=== PATIENT | female | born 1945 | race Caucasian/White ===

== ENCOUNTER → 2016-07-02 | Outpatient (CLI) | payer OTHER ==
--- NOTE | 2016-07-02 10:55 | MM ---
Reason for exam: follow-up at short interval from prior study. Last mammogram was performed 6 months ago. History: Patient is postmenopausal, has history of other cancer at age 57, and is nulliparous. Physical Findings: Nurse did not find any significant physical abnormalities on exam. MG Diagnostic Mammo RT w CAD CC and MLO view(s) were taken of the right breast. Prior study comparison: December 18, 2015, right breast MG work up mamm w CAD RT. December 04, 2015, bilateral MG screening mammo w CAD. There are scattered fibroglandular densities. Finding: There are few typically benign round calcifications in the right breast. There is no discrete abnormality. These results were verbally communicated with the patient and result sheet given to the patient on 07/02/16. ASSESSMENT: Benign, BI-RAD 2 RECOMMENDATION: Return to routine screening mammogram schedule for both breasts. Back on schedule.
== END ==
LOC: RADMAMWWP 09:53
PROVIDERS: ATTEND Family Medicine
DX: N64.9 Disorder of breast, unspecified (principal)

== ENCOUNTER → 2017-05-09 | Outpatient (CLI) | payer OTHER ==
--- NOTE | 2017-05-13 09:51 | MM ---
Reason for exam: screening (asymptomatic). Last mammogram was performed 10 months ago. History: Patient is postmenopausal, has history of other cancer at age 57, and is nulliparous. Physical Findings: A clinical breast exam by your physician is recommended on an annual basis and results should be correlated with mammographic findings. MG Screening Mammo w CAD Bilateral CC and MLO view(s) were taken. Prior study comparison: December 04, 2015, bilateral MG screening mammo w CAD. December 02, 2013, mammogram, performed at [facility]. October 09, 2012, mammogram, performed at [facility]. There are scattered fibroglandular densities. No significant changes when compared with prior studies. ASSESSMENT: Negative, BI-RAD 1 RECOMMENDATION: Routine screening mammogram of both breasts in 1 year.
== END | disposition home or self-care (01) ==
LOC: RADMAMWWP 09:33
DX: Z12.31 Encounter for screening mammogram for malignant neoplasm of breast (principal)
CPT/HCPCS: 77067

== ENCOUNTER → 2018-07-13 | Outpatient (CLI) | payer OTHER ==
--- NOTE | 2018-07-14 10:17 | MM ---
Reason for exam: screening (asymptomatic). Last mammogram was performed 1 year and 2 months ago. History: Patient is postmenopausal, has history of other cancer at age 57, and is nulliparous. Physical Findings: A clinical breast exam by your physician is recommended on an annual basis and results should be correlated with mammographic findings. MG Screening Mammo w CAD Bilateral CC and MLO view(s) were taken. Prior study comparison: May 09, 2017, bilateral MG screening mammo w CAD. July 02, 2016, right breast MG diagnostic mammo RT w CAD. The breast tissue is heterogeneously dense. This may lower the sensitivity of mammography. Stable benign calcifications. There is no discrete abnormality. No significant changes when compared with prior studies. ASSESSMENT: Benign, BI-RAD 2 RECOMMENDATION: Routine screening mammogram of both breasts in 1 year.
== END ==
LOC: RADMAMWWP 12:03
PROVIDERS: ATTEND Physician Assistant
DX: Z12.31 Encounter for screening mammogram for malignant neoplasm of breast (principal)
CPT/HCPCS: 77067

== ENCOUNTER → 2019-01-01 | Outpatient (CLI) | payer OTHER ==
--- NOTE | 2019-01-01 11:56 | CT ---
EXAMINATION TYPE: CT sinus wo con DATE OF EXAM: 01/01/2019 COMPARISON: NONE HISTORY: Headaches and sinus drainage per patient. Chronic sinusitis per order. CT DLP: 587.5 mGycm. Automated Exposure Control for Dose Reduction was Utilized. TECHNIQUE: CT scan of the sinuses is performed without contrast, axial images are obtained, coronal r eformatted images are also reviewed. FINDINGS: The paranasal sinuses including the frontal, ethmoid, sphenoid, and maxillary sinuses bila terally are well-aerated without abnormal opacification or suspicious air-fluid levels. The ostiomea fabienne complex is patent bilaterally on coronal image 19. Nasal septum is slightly deviated to left of m idline. Visualized portion of mastoid air cells show no abnormal opacification. The globes are intact bilate rally. Some vascular calcification of distal internal carotid arteries bilaterally is present. Visua lized brain parenchyma shows mild to moderate diffuse cerebral atrophy IMPRESSION: The sinuses are clear and the ostiomeatal complex is patent bilaterally.
== END | disposition home or self-care (01) ==
LOC: RADCTMAIN 11:18
DX: J32.9 Chronic sinusitis, unspecified (principal); Z88.8 Allergy status to other drugs, medicaments and biological substances
CPT/HCPCS: 70486

== ENCOUNTER → 2021-09-20 | Outpatient (CLI) | payer OTHER ==
[2021-09-20 19:00] LABS: Basophils # (A) 0.02 X 10*3/uL (0.00-0.10); Basophils % (A) 0.5 %; Eosinophils # (A) 0.14 X 10*3/uL (0.04-0.35); Eosinophils % (A) 3.5 %; HCT 39.1 % (37.2-46.3); HGB 12.1 g/dL (12.0-15.0); Immature Grans, Automated 0.2 %; Lymphocytes # (A) 1.02 X 10*3/uL (0.90-5.00); Lymphocytes % (A) 25.2 %; MCHC 30.9 g/dL (32.0-37.0); MCV 84.1 fL (80.0-97.0); Mean Platelet Volume 11.1 fL (9.5-12.2); Monocytes # (A) 0.29 X 10*3/uL (0.20-1.00); Monocytes % (A) 7.2 %; NRBC Per 100 WBC 0 /100 WBCS (0.0-0.0); Neutrophils # (A) 2.57 X 10*3/uL (1.80-7.70); Neutrophils % (A) 63.4 %; Platelet Count 201 X 10*3/uL (140-440); RBC 4.65 X 10*6/uL (4.10-5.20); RDW 14.5 % (11.5-14.5); WBC 4.05 X 10*3/uL (4.50-10.00)
[2021-09-20 19:07] LABS: African American GFR (CKD) 102.6 (60.0-200.0); Anion Gap 10.6 mmol/L (10.00-18.00); Blood Urea Nitrogen 12.6 mg/dL (9.0-27.0); Calcium 9.7 mg/dL (8.7-10.3); Carbon Dioxide 27.4 mmol/L (20.0-27.5); Non-African American GFR(CKD) 88.5 (60.0-200.0); Potassium 4.8 mmol/L (3.5-5.5)
[2021-09-20 20:28] LABS: INR 0.95 (0.90-1.11); Prothrombin Time 10.5 sec (9.9-11.9)
== END | disposition home or self-care (01) ==
LOC: LABPAT 13:07
PROVIDERS: ATTEND Orthopaedic Surgery
DX: Z01.812 Encounter for preprocedural laboratory examination (principal); Z22.322 Carrier or suspected carrier of Methicillin resistant Staphylococcus aureus; M17.11 Unilateral primary osteoarthritis, right knee
CPT/HCPCS: 80048; 85025; 85610; 87070

== ENCOUNTER 2021-10-16 07:48 | Observation (INO) | payer OTHER ==
--- NOTE | 2021-10-15 13:34 | HP ---
HISTORY AND PHYSICAL CHIEF COMPLAINT: Right knee pain. HISTORY OF PRESENT ILLNESS: Patient is a 76-year-old retired female who presents with progressive right knee pain for the past several years, worsening over the past 6 months. She notes diffuse pain with any walking or getting up from a seated position. She completed therapy with some relief. She takes Tylenol as needed. She does normally walk with 2 canes. PAST MEDICAL HISTORY: Significant for type 2 diabetes, hypercholesterolemia, hypertension, previous transient ischemic attack along with arthritis. PAST SURGICAL HISTORY: Significant for hysterectomy. FAMILY HISTORY: Significant for cancer and heart disease. SOCIAL HISTORY: Negative for current tobacco or alcohol use. REVIEW OF SYSTEMS: 16-point review of systems is otherwise reviewed and is noncontributory. MEDICATIONS: Current medications: Aspirin, lisinopril, metformin, simvastatin, and Tylenol. ALLERGIES: NOVOCAIN AND EPINEPHRINE. PHYSICAL EXAMINATION: On examination, the patient is approximately 5 foot 10, 215 pounds of endomorphic habitus. HEENT exam is nonfocal. Neck is supple. She has painless passive motion of the right hip. Straight-leg raise is negative. Active motion right knee: Minus 18 to 100 degrees of flexion. She has a moderate effusion. She is tender about the lateral joint line. She has valgus deformity. She has an antalgic gait pattern. Her distal neurovascular exam appears intact in the right lower extremity. X-rays to include weightbearing notch, lateral and Merchant views of the right knee obtained in the office show severe lateral and patellofemoral compartment narrowing. There is significant genu valgum deformity along with subchondral sclerosis and spurring. IMPRESSION: 1. Right knee severe lateral and patellofemoral compartment osteoarthrosis. 2. Lhd-efalvkd-wowdkvxlt diabetes. RECOMMENDATIONS: I talked to the patient at length regarding her condition along with treatment options. At this point, she is quite limited because of pain related to her osteoarthrosis despite conservative measures. After thorough discussion, she opts to proceed with surgery. We will plan to proceed with right total knee arthroplasty. We will likely have to use a more constrained implant as she has significant deformity. Risks and benefits were discussed at length in layman's terms. We will institute DVT prophylaxis postoperatively. MMODL / IJN: [id number] /
[~2021-10-16 07:48] MED LIST: ACETAMINOPHEN TAB 500 MG TAB PO PRN; HYDROmorphone 0.5 MG/0.5 ML SYRINGE IVP PRN; LIDOCAINE 1% (10MG/ML) FOR IV START INTRADERMA PRN; MELOXICAM 7.5 MG TAB PO PRN; ONDANSETRON 4 MG/2 ML VIAL IVP ONE; TRANEXAMIC ACID IN NACL,ISO-OS 1,000 MG in SALINE 1 100ML.BAG IVPB PRN
[2021-10-16 08:39] LABS: Glucose,Whole Blood 218 mg/dL (70-110)
[2021-10-16] MEDS ORDERED: LACTATED RINGERS 1,000 ML IV ONE ×4 (08:42→17:55)
[2021-10-16] MEDS ORDERED: ACETAMINOPHEN TAB 500 MG TAB PO ONE (08:42)
[2021-10-16] MEDS ORDERED: ONDANSETRON 4 MG/2 ML VIAL IVP ONE (08:42)
[2021-10-16] MEDS ORDERED: DEXAMETHASONE SOD PHOSPHATE 4 MG/ML 1 ML VIAL IVP ONE (08:42)
[2021-10-16] MEDS ORDERED: MELOXICAM 7.5 MG TAB PO ONE (08:43)
[2021-10-16] MEDS ORDERED: INSULIN ASPART (NovoLOG) 100 UNIT/ML VIAL SQ ONE (09:36)
[2021-10-16] MEDS ORDERED: NEOSTIGMINE 1 MG/ML 10 ML VIAL ONE (09:54)
[2021-10-16] MEDS ORDERED: HYDROmorphone (PF) 1 MG/ML ONE (09:54)
[2021-10-16] MEDS ORDERED: MORPHINE SULFATE (PF) 0.3 MG/0.3 ML SYR ONE (09:54)
[2021-10-16] MEDS ORDERED: SUCCINYLCHOLINE CHLORIDE 200 MG/10 ML VIAL IV ONE (09:54)
[2021-10-16] MEDS ORDERED: ROCURONIUM 10 MG/ML (5 ML VIAL) IV ONE (09:54)
[2021-10-16] MEDS ORDERED: GLYCOPYRROLATE 0.2 MG/ML 2 ML VIAL ONE (09:54)
[2021-10-16] MEDS ORDERED: ePHEDrine 50 MG/ML 1 ML VIAL ONE (09:54)
[2021-10-16] MEDS ORDERED: PROPOFOL 10 MG/ML 20 ML VIAL IV ONE (09:54)
[2021-10-16] MEDS ORDERED: fentaNYL (PF) 50 MCG/ML 2 ML AMP ONE (09:54)
[2021-10-16] MEDS ORDERED: TRANEXAMIC ACID IN NACL,ISO-OS 1,000 MG/100 ML BAG ONE (09:54)
[2021-10-16] MEDS ORDERED: MIDAZOLAM 2 MG/2 ML VIAL ONE (09:54)
[2021-10-16] MEDS ORDERED: ceFAZolin 1,000 MG in SODIUM CHLORIDE 0.9% 1,000 ML IRRIGATION ONE (10:26)
--- NOTE | 2021-10-16 11:43 | P.ANPRN ---
Procedure Note - Anesthesia - Epidural/Spinal Spinal Time Out Performed: Yes Date of Procedure: 10/16/21 Procedure Start Time: 11:00 (see chart) Procedure Stop Time: 11:05 Location of Patient: OR Indication: Acute Post-Operative Pain Preparation: Sterile Dressing Number of Attempts: 3 (scoliosis) Position: Sitting Catheter: None Needle Guage: 25 Narrative: local with chlorprocaine subq. Spinal w/ duramorph 0.3 mg Blood Aspirated: No Pain Paresthesia on Injection Noted: No Events: Uneventful and Well Tolerated
[2021-10-16] MEDS ORDERED: HYDROcodone/APAP 7.5-325MG 1 EACH TAB PO PRN (11:57)
[2021-10-16] MEDS ORDERED: MAGNESIUM HYDROXIDE 2,400 MG/10 ML CUP PO PRN (11:57)
[2021-10-16] MEDS ORDERED: ONDANSETRON 4 MG/2 ML VIAL IVP PRN (11:57)
[2021-10-16] MEDS ORDERED: HYDROmorphone 0.5 MG/0.5 ML SYRINGE IVP PRN (11:57)
[2021-10-16] MEDS ORDERED: HYDROcodone/APAP 5-325MG 1 EACH TAB PO PRN (11:57)
[2021-10-16] MEDS ORDERED: NALOXONE 0.4 MG/ML 1 ML VIAL IV PRN ×2 (11:57→15:06)
[2021-10-16] MEDS ORDERED: traMADol 50 MG TAB PO PRN (11:57)
--- NOTE | 2021-10-16 12:27 | P.OP ---
Date of Procedure: 10/16/21 Preoperative Diagnosis: Right knee severe tricompartmental osteoarthrosis with significant genu valgum deformity Postoperative Diagnosis: Same Procedure(s) Performed: Right total knee arthroplastycementedconstrained Implants: Depuy TC3 size 5 cemented femoral component with 14 x 30 mm stem, size 4 cemented tibial component, size 37 mm metaphyseal cone, 15 x 30 mm tibial stem Anesthesia: GETA, spinal Surgeon: Tyrese Logan Fuel Cell Technician #1: Delfin Ward Assistant #2: Thom Wood Estimated Blood Loss (ml): 50 Pathology: other (Bone fragments) Condition: stable Disposition: PACU Indications for Procedure: The patient is a 76-year-old female who presents with progressive right knee pain and deformity secondary to osteoarthrosis despite conservative measures. A discussion of the risks and benefits of operative intervention versus continued conservative measures made with patient. She opted to proceed with surgery. Operative risks to include infection, neurovascular injury, development of blood clots, fracture, possible recurrent deformity, possible component loosening/failure and need for subsequent procedures was discussed. Informed consent was obtained. Operative Findings: As below Description of Procedure: The patient was brought to the operating room, and after induction of general/spinal anesthesia the right lower extremity was prepped and draped in a normal fashion. The tourniquet was inflated to 270 mm marker. A longitudinal incision extending 3 finger breaths above the superior pole of patella extending to the medial aspect the tibial tubercle was then made. The skin and subcutaneous tissues were divided sharply. Electrocautery was used for hemostasis. A medial parapatellar arthrotomy was performed. The medial soft tissues to include the superficial and deep portions of the medial collateral ligament were elevated subperiosteally. The patella was everted. A portion of the retropatellar fat pad was excised sharply. The anterior cruciate ligament was sacrificed. Blunt retractors were placed. A starting hole was made in the distal femur 1 cm anterior to the posterior cruciate ligament origin. An intramedullary femoral guide was then inserted planning on 7 valgus distal cut with 10 mm distal resection. The cutting block was pinned in place. The distal cut was then made. The posterior referencing sizing guide was utilized. I felt size 5 was most appropriate. 3 of external rotation was built into the system and verified off the trans-epicondylar axis and the posterior condyles. The cutting block was pinned in place. The anterior, posterior, and chamfer cuts then made. Bone fragments were removed. The intercondylar guide was placed and the notch cut was made with a sagittal saw. The bone block was removed in one fragment. The distal femur was reamed up to 13 mm for placement of a femoral stem.. The trial component was placed and was fully seated. There is good anterior to posterior and medial to lateral fit. . Attention was then paid towards preparing the proximal tibia. An extra medullary guide was utilized in line with the tibial shaft and second metatarsal distally. I planned on 8 mm resection from the medial compartment. The cutting block was pinned in place. The proximal tibial cut was then made. The bone was removed in one fragment. The remnants of the medial and lateral menisci were excised at the capsular junction with electrocautery. The tibia sized most appropriately at size 4. The tibial canal was reamed up to 15 mm. The 37 mm metaphyseal broach was inserted with good rotational stability. The trial femoral and tibial components were placed along with a 10 mm articular surface. I was able to obtain full flexion and extension with internal and external rotation. After several flexion and extension cycles, the tibial rotation was marked with electrocautery line with the medial one third of the tibial tubercle. Attention was then paid towards preparing the patella. A patella reamer was utilized taking stem to 14 mm of bone stock. A good flush cut was made. The patella sized most appropriately 38 mm. The peg holes were drilled. The trial components placed. I had good patellofemoral tracking with no hands technique. The trial components were then removed. The tibia was prepared in the appropriate rotation with appropriate drill and keel punch. The posterior osteophytes were removed with a curved osteotome. The flexion and extension gaps were checked and felt to be symmetric at 10 mm. A trial components were then removed. The bony surfaces were prepared with pulsatile lavage and dried. The tibial component was then cemented place was fully seated. Excess cement was removed. The femoral component cemented place and was fully seated. Excess cement was removed. The trial 10 mm articular surface was placed and the knee was put in full extension. The patella component was cemented place. After the cement had sufficiently hardened, the knee was again taken through a range of motion. Again I was able to obtain full flexion and extension with varus and valgus stress. The trial 10 mm articular surface was removed and the final one inserted. This was fully seated. Care was taken to avoid any soft tissue interposition. Pulsatile lavage was again utilized. The medial parapatellar arthrotomy was closed with #2 Ethibond suture. The tourniquet was deflated with approximately 60 minutes total tourniquet time. Final hemostasis was obtained with the cautery. There was minimal bleeding therefore a deep drain was not placed. The subcutaneous tissues were reapproximated with interrupted 2-0 Vicryl sutures. The skin was reapproximated with 3-0 subcuticular strata fix suture. Skin tape and adhesive was applied. A sterile dressing was applied. The patient was awoken from sedation and transferred to recovery room in good condition. Blood loss was estimated at 50 mL. No complications were incurred. Sponge and needle counts were correct at the end of the case. Porfirio WU and Thom WU assisted during the major components of this case to include exposure, bone resection, implantation, and closure.
--- NOTE | 2021-10-16 13:02 | XR ---
EXAMINATION TYPE: XR knee limited RT DATE OF EXAM: 10/16/2021 COMPARISON: NONE TECHNIQUE: Two views submitted HISTORY: Post op FINDINGS: There is a prosthetic knee in near anatomic alignment. There is soft tissue edema and emphysema. IMPRESSION: 1. Postoperative change. Appears in near-anatomic alignment
[2021-10-16] MEDS ORDERED: NALBUPHINE 10 MG/ML (1 ML AMP) IV PRN (15:06)
[2021-10-16] MEDS: LACTATED RINGERS 1,000 ML IV SCH (17:27)
[2021-10-16 20:14] LABS: Glucose,Whole Blood 248 mg/dL (70-110)
[2021-10-16] MEDS: SENNOSIDES-DOCUSATE SODIUM 1 EACH TAB PO SCH (20:34)
[2021-10-16] MEDS: ATORVASTATIN 10 MG TAB PO SCH (20:39)
[2021-10-16] MEDS: INSULIN ASPART (NovoLOG) 100 UNIT/ML VIAL SQ SCH (20:39)
[2021-10-16] MEDS: LISINOPRIL-HCTZ 10-12.5 MG 1 EACH TAB PO SCH (21:34)
[2021-10-17 07:01] LABS: Glucose,Whole Blood 221 mg/dL (70-110)
--- NOTE | 2021-10-17 07:26 | P.PN ---
Progress Note - Text Progress Note Date: 10/17/21 Patient doing well. Pain controlled. Denies headache. Ambulating w/ assistance. Back - spinal site c/d POD#1 s/p TKA w/ spinal duramorph - doing well
[2021-10-17] MEDS: INSULIN ASPART (NovoLOG) 100 UNIT/ML VIAL SQ SCH ×6 (07:29→21:31)
[2021-10-17] MEDS: RIVAROXABAN 10 MG TAB PO SCH (07:29)
[2021-10-17] MEDS ORDERED: DEXTROSE 50% SYRINGE 50 ML IVP PRN ×2 (09:34)
[2021-10-17 09:35] LABS: Basophils # (A) 0.01 X 10*3/uL (0.00-0.10); Basophils % (A) 0.1 %; Eosinophils # (A) 0.01 X 10*3/uL (0.04-0.35); Eosinophils % (A) 0.1 %; HCT 27.9 % (37.2-46.3); HGB 8.8 g/dL (12.0-15.0); Immature Grans, Automated 0.3 %; Lymphocytes # (A) 0.89 X 10*3/uL (0.90-5.00); Lymphocytes % (A) 13.2 %; MCH 26.3 pg (27.0-32.0); MCHC 31.5 g/dL (32.0-37.0); MCV 83.3 fL (80.0-97.0); Mean Platelet Volume 10.9 fL (9.5-12.2); Monocytes # (A) 0.69 X 10*3/uL (0.20-1.00); Monocytes % (A) 10.2 %; NRBC Per 100 WBC 0 /100 WBCS (0.0-0.0); Neutrophils # (A) 5.13 X 10*3/uL (1.80-7.70); Neutrophils % (A) 76.1 %; Platelet Count 157 X 10*3/uL (140-440); RBC 3.35 X 10*6/uL (4.10-5.20); RDW 14.3 % (11.5-14.5); WBC 6.75 X 10*3/uL (4.50-10.00)
[2021-10-17] MEDS: LACTATED RINGERS 1,000 ML IV SCH (09:48)
--- NOTE | 2021-10-17 10:35 | P.PN ---
Subjective Progress Note Date: 10/17/21 Principal diagnosis: Right knee osteoarthritis Patient was seen at bedside this morning resting comfortably sitting up in chair. Patient says physical therapy had just been in room working with her. Patient says she did walk with therapy using walker to the bathroom and back to the chair. Patient says she does have a walker for home. However, patient says she is not ready to go home today. Patient says she has been performing exercises this morning. Patient denies chest pain, fever, shortness of breath, nausea, vomiting, change in vision, loss of bowel/bladder control Objective - Vital Signs Vital signs: Vital Signs Temp 99 F 10/17/21 08:00 Pulse 106 H 10/17/21 08:00 Resp 16 10/17/21 10:00 BP 107/56 10/17/21 08:00 Pulse Ox 94 L 10/17/21 08:21 FiO2 Intake & Output 10/16/21 10/17/21 10/17/21 18:59 06:59 18:59 Intake Total 1950 Output Total 600 Balance 1351 Weight 97.52 kg Intake: IV 1950 Output: Urine 550 Estimated Blood Loss 50 Other: Voiding Method Toilet Toilet Bedpan - Exam Right knee: Incision is clean, dry, and intact. The exofin fusion tape is in good condition. There is minimal soft tissue swelling and ecchymosis surrounding the medial and lateral aspects of the incision. Calf is soft, no tenderness with palpation. Plantar flexion, dorsiflexion, EHL, FHL are intact. Sensory exam to light touch throughout the extremity is intact, dorsal pedis pulses 2+. - Labs CBC & Chem 7: 10/17/21 06:29 Labs: Abnormal Lab Results - Last 24 Hours (Table) 10/16/21 10/17/21 10/17/21 Range/Units 20:13 06:29 06:59 RBC 3.35 L (4.10-5.20) X 10*6/uL Hgb 8.8 L (12.0-15.0) g/dL Hct 27.9 L (37.2-46.3) % MCH 26.3 L (27.0-32.0) pg MCHC 31.5 L (32.0-37.0) g/dL Lymphocytes # 0.89 L (0.90-5.00) X 10*3/uL Eosinophils # 0.01 L (0.04-0.35) X 10*3/uL POC Glucose (mg/dL) 248 H 221 H (70-110) mg/dL Assessment and Plan Assessment: 1. Right knee osteoarthritis Postoperative day #1 status post right total knee arthroplasty Plan: 1. Right knee osteoarthritis - right total knee arthroplasty performed yesterday, 10/16/2021. Patient stable at bedside this morning. Plan for discharge home tomorrow with health services. 2. Appreciate medical management 3. Pain management - Foley 4. GI prophylaxis - Colace 5. DVT prophylaxis - Xarelto 6. PT/OT - weightbearing as tolerated with walker 7. Encourage incentive spirometer use 8. Discharge planning - plan for discharge home with health services Time with Patient: Less than 30
[2021-10-17 11:59] LABS: Glucose,Whole Blood 250 mg/dL (70-110)
--- NOTE | 2021-10-17 13:32 | P.CONS ---
History of Present Illness - Reason for Consult Consult date: 10/17/21 medical management Requesting physician: Delfin Ward - History of Present Illness This is a 76 year female with medical history significant for TIA, diabetes mellitus, hypertension, GERD, uterine cancer, chronic back pain, neuropathy right foot, rare former smoker quit 35 years ago. Patient underwent elective right total knee arthroplasty secondary to osteoarthritis. She is postoperative day #1. Patient home medications include metformin, Librium, simvastatin, Zestoretic, vitamins. Preoperative labs show a glucose of 190. Creatinine was stable at 0.6. She is afebrile, she is tachycardic heart rate 106, blood pressure 107/56 and she is 92% on 3 L nasal cannula. She has been resumed on her home blood pressure medication she has been started on Xarelto for VTE prophylaxis. Metformin on hold in place and is receiving sliding scale insulin. We are asked to see patient in consultation for medical management. Is pending PT OT evaluation. REVIEW OF SYSTEMS: CONSTITUTIONAL: No fever, no malaise, no fatigue. HEENT: No recent visual problems or hearing problems. Denied any sore throat. CARDIOVASCULAR: No chest pain, orthopnea, PND, no palpitations, no syncope. PULMONARY: No shortness of breath, no cough, no hemoptysis. GASTROINTESTINAL: No diarrhea, no nausea, no vomiting, no abdominal pain. NEUROLOGICAL: No headaches, no weakness, no numbness. HEMATOLOGICAL: Denies any bleeding or petechiae. GENITOURINARY: Denies any burning micturition, frequency, or urgency. MUSCULOSKELETAL/RHEUMATOLOGICAL: Reports right knee pain, right calf cramping ENDOCRINE: Denies any polyuria or polydipsia. The rest of the 14-point review of systems is negative. PHYSICAL EXAMINATION: GENERAL: The patient is alert and oriented x3, not in any acute distress. Well developed, well nourished. HEENT: Pupils are round and equally reacting to light. EOMI. No scleral icterus. No conjunctival pallor. Normocephalic, atraumatic. No pharyngeal erythema. No thyromegaly. CARDIOVASCULAR: S1 and S2 present. No murmurs, rubs, or gallops. PULMONARY: Chest is clear to auscultation, no wheezing or crackles. ABDOMEN: Soft, nontender, nondistended, normoactive bowel sounds. No palpable organomegaly. MUSCULOSKELETAL: No joint swelling or deformity. EXTREMITIES: No cyanosis, clubbing, or pedal edema. NEUROLOGICAL: Gross neurological examination did not reveal any focal deficits. SKIN: No rashes. Assessment and plan Assessment Postoperative day 1 right total arthroplasty secondary to osteoarthritis Diabetes Mellitus type II with hyperglycemia History TIA Hypertension currently normotensive Gastroesophageal reflux disease History uterine cancer History of chronic back pain History neuropathy right foot Rare former smoker GI Prophylaxis DVT Prophlaxis as per primary Full Code Plan Continue appropriate home medications, metformin is currently on hold Monitor blood glucoses before meals at bedtime Pending PT OT evaluation CBC BMP today Patient will be started on GI prophylaxis Thank you kindly for this consultation The impression and plan of care has been dictated by Aide Sherwood Nurse Practitioner as directed. Dr. Supriya MD I have performed a history and physical examination and medical decision making of this patient, discussed the same with the dictator, and agree with the dictators assessment and plan as written, documented as a scribe. Based on total visit time, I have performed more than 50% of this visit. Past Medical History Past Medical History: Cancer, CVA/TIA, Diabetes Mellitus, GERD/Reflux, Hyperlipidemia, Hypertension, Osteoarthritis (OA) Additional Past Medical History / Comment(s): TIA, NO PERMANENT. UTERINE CANCER . LOWER BACK PAIN WITH NEUROPATHY OF RIGHT FOOT. 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 Smoking Status: Former smoker Past Alcohol Use History: Rare Additional Past Alcohol Use History / Comment(s): QUIT 35 YEARS. Past Drug Use History: None Reported - Past Family History Mother Family Medical History: Cancer Brother(s) Family Medical History: Cancer Medications and Allergies Home Medications Medication Instructions Recorded Confirmed Type Acetaminophen Tab [Tylenol] 650 mg PO Q6H PRN 10/12/21 10/16/21 History Ascorbic Acid [Vitamin C] 500 mg PO BID 10/12/21 10/16/21 History Aspirin 650 mg PO Q6H PRN 10/12/21 10/16/21 History Calcium Carbonate [Tums] 1 - 2 tab PO DAILY PRN 10/12/21 10/16/21 History Cholecalciferol [Vitamin D3 (25 75 mcg PO DAILY 10/12/21 10/16/21 History Mcg = 1000 Iu)] Lisinopril-Hctz 10-12.5 mg 1 tab PO HS 10/12/21 10/16/21 History [Zestoretic 10-12.5] Simvastatin [Zocor] 20 mg PO HS 10/12/21 10/16/21 History chlordiazePOXIDE HCl [Librium] 5 mg PO QAM 10/12/21 10/16/21 History metFORMIN HCL 1,000 mg PO BID 10/12/21 10/16/21 History Allergies Allergy/AdvReac Type Severity Reaction Status Date / Time epinephrine Allergy Anaphylaxis Verified 10/16/21 08:25 lidocaine Allergy Anaphylaxis Verified 10/16/21 08:25 Physical Exam Vitals: Vital Signs Temp Pulse Resp BP Pulse Ox 10/17/21 08:21 94 L 10/17/21 08:00 99 F 106 H 17 107/56 92 L 10/17/21 02:00 98.3 F 114 H 18 109/65 97 10/16/21 20:07 16 10/16/21 20:00 99.3 F 94 18 126/76 96 10/16/21 18:29 98.5 F 92 137/73 96 10/16/21 17:00 80 16 133/59 99 10/16/21 16:00 98 16 158/72 99 10/16/21 15:00 98 16 145/64 99 10/16/21 14:01 68 16 157/72 99 10/16/21 13:31 64 16 158/74 99 10/16/21 13:18 64 16 149/62 99 10/16/21 13:02 83 16 163/69 99 10/16/21 12:45 82 16 161/74 98 10/16/21 12:30 85 16 162/74 98 10/16/21 12:21 97 F L 105 H 16 166/82 98 Intake and Output 10/16/21 10/17/21 10/17/21 22:59 06:59 14:59 Output Total 550 Balance -550 Output: Urine 550 Other: Voiding Method Toilet Toilet Bedpan Weight 97.52 kg Results CBC & Chem 7: 10/17/21 06:29 Labs: Abnormal Lab Results - Last 24 Hours (Table) 10/16/21 10/17/21 Range/Units 20:13 06:59 POC Glucose (mg/dL) 248 H 221 H (70-110) mg/dL Assessment and Plan Time with Patient: Less than 30
[2021-10-17 14:52] VITALS: RESP 18
[2021-10-17 16:33] LABS: Glucose,Whole Blood 206 mg/dL (70-110)
[2021-10-17] MEDS: ACETAMINOPHEN TAB 325 MG TAB PO PRN (17:10)
[2021-10-17 19:17] LABS: Glucose,Whole Blood 293 mg/dL (70-110)
[2021-10-17] MEDS ORDERED: CALCIUM CARBONATE 500 MG CHEWABLE PO PRN (20:58)
[2021-10-17] MEDS ORDERED: INSULIN DETEMIR (LEVEMIR) 100 UNIT/ML SYR SQ SCH (21:00)
[2021-10-17] MEDS ORDERED: FAMOTIDINE 20 MG TAB PO SCH (21:00)
[2021-10-17] MEDS: ATORVASTATIN 10 MG TAB PO SCH (21:31)
[2021-10-17] MEDS: SENNOSIDES-DOCUSATE SODIUM 1 EACH TAB PO SCH (21:32)
[2021-10-17] MEDS: LISINOPRIL-HCTZ 10-12.5 MG 1 EACH TAB PO SCH (21:32)
[2021-10-18] MEDS: ACETAMINOPHEN TAB 325 MG TAB PO PRN ×2 (01:16→08:18)
[2021-10-18 01:58] VITALS: BP 127/65; PULSE 114; TEMP 99.5
[2021-10-18 06:48] LABS: Glucose,Whole Blood 161 mg/dL (70-110)
[2021-10-18] MEDS: LACTATED RINGERS 1,000 ML IV SCH (07:13)
[2021-10-18] MEDS: INSULIN ASPART (NovoLOG) 100 UNIT/ML VIAL SQ SCH ×2 (08:20→08:21)
[2021-10-18] MEDS: RIVAROXABAN 10 MG TAB PO SCH (08:20)
[2021-10-18 08:39] LABS: Basophils # (A) 0.02 X 10*3/uL (0.00-0.10); Basophils % (A) 0.3 %; Eosinophils # (A) 0.04 X 10*3/uL (0.04-0.35); Eosinophils % (A) 0.7 %; HCT 25.9 % (37.2-46.3); HGB 8.2 g/dL (12.0-15.0); Immature Grans, Automated 0.2 %; Lymphocytes # (A) 1.01 X 10*3/uL (0.90-5.00); Lymphocytes % (A) 16.5 %; MCHC 31.7 g/dL (32.0-37.0); MCV 82.2 fL (80.0-97.0); Mean Platelet Volume 11.2 fL (9.5-12.2); Monocytes # (A) 0.69 X 10*3/uL (0.20-1.00); Monocytes % (A) 11.3 %; NRBC Per 100 WBC 0 /100 WBCS (0.0-0.0); Neutrophils # (A) 4.35 X 10*3/uL (1.80-7.70); Platelet Count 146 X 10*3/uL (140-440); RBC 3.15 X 10*6/uL (4.10-5.20); RDW 14.4 % (11.5-14.5); WBC 6.12 X 10*3/uL (4.50-10.00)
[2021-10-18 09:49] LABS: African American GFR (CKD) 102.6 (60.0-200.0); Anion Gap 9.5 mmol/L (10.00-18.00); BUN/Creat Ratio 18.33 Ratio (12.00-20.00); Calcium 8.7 mg/dL (8.7-10.3); Carbon Dioxide 26.5 mmol/L (20.0-27.5); Non-African American GFR(CKD) 88.5 (60.0-200.0); Potassium 3.1 mmol/L (3.5-5.5)
--- NOTE | 2021-10-18 10:25 | P.PN ---
Subjective Progress Note Date: 10/18/21 Principal diagnosis: Status post right total knee arthroplasty Patient was evaluated today at bedside, she is resting in her hospital chair. Patient is very eager to go home. She states the pain is under control currently. She's been avoiding narcotics and just utilizing Tylenol. She currently denies headaches, lightheadedness, chest pain or shortness of breath. Objective - Vital Signs Vital signs: Vital Signs Temp 99.5 F 10/18/21 01:58 Pulse 114 H 10/18/21 01:58 Resp 18 10/18/21 09:49 BP 127/65 10/18/21 01:58 Pulse Ox 94 L 10/18/21 01:58 FiO2 Intake & Output 10/17/21 10/18/21 10/18/21 18:59 06:59 18:59 Intake Total 420 Balance 420 Intake: Intake, IV Titration 120 Amount Lactated Ringers 1,000 ml 120 @ 20 mls/hr IV .Q24H [facility] Rx#:[id number] Oral 300 Other: Voiding Method Toilet Toilet Bedpan Bedpan # Voids 4 4 # Bowel Movements 0 - Exam Right lower extremity: Incision is clean, dry, and intact. The exofin fusion tape is in good condition. There is minimal soft tissue swelling and ecchymosis surrounding the medial and lateral aspects of the incision. Calf is soft, no tenderness with palpation. Plantar flexion, dorsiflexion, EHL, FHL are intact. Sensory exam to light touch throughout the extremity is intact, dorsal pedis pulses 2+. - Labs CBC & Chem 7: 10/18/21 04:25 10/18/21 04:25 Labs: Abnormal Lab Results - Last 24 Hours (Table) 10/17/21 10/17/21 10/17/21 Range/Units 06:29 11:57 16:30 RBC (4.10-5.20) X 10*6/uL Hgb (12.0-15.0) g/dL Hct (37.2-46.3) % MCH (27.0-32.0) pg MCHC (32.0-37.0) g/dL Potassium (3.5-5.5) mmol/L Anion Gap (10.00-18.00) mmol/L Glucose (70-110) mg/dL POC Glucose (mg/dL) 250 H 206 H (70-110) mg/dL Hemoglobin A1c 8.6 H (0.0-6.0) % 10/17/21 10/18/21 10/18/21 Range/Units 19:15 04:25 04:25 RBC 3.15 L (4.10-5.20) X 10*6/uL Hgb 8.2 L (12.0-15.0) g/dL Hct 25.9 L (37.2-46.3) % MCH 26.0 L (27.0-32.0) pg MCHC 31.7 L (32.0-37.0) g/dL Potassium 3.1 L (3.5-5.5) mmol/L Anion Gap 9.50 L (10.00-18.00) mmol/L Glucose 161 H (70-110) mg/dL POC Glucose (mg/dL) 293 H (70-110) mg/dL Hemoglobin A1c (0.0-6.0) % 10/18/21 Range/Units 06:47 RBC (4.10-5.20) X 10*6/uL Hgb (12.0-15.0) g/dL Hct (37.2-46.3) % MCH (27.0-32.0) pg MCHC (32.0-37.0) g/dL Potassium (3.5-5.5) mmol/L Anion Gap (10.00-18.00) mmol/L Glucose (70-110) mg/dL POC Glucose (mg/dL) 161 H (70-110) mg/dL Hemoglobin A1c (0.0-6.0) % Assessment and Plan Assessment: Postoperative day #2 status post right total knee arthroplasty Plan: Pain control, patient will resume Tylenol at discharge DVT prophylaxis, patient will utilize aspirin 325 mg twice a day Wound care instructions were discussed with patient, this including both ice and elevating and showering instructions Encourage incentive spirometer Medical recommendations Home healthcare, this including therapy and nursing after discharge Discharge planning: Stable for discharge home today Time with Patient: Less than 30
--- NOTE | 2021-10-18 10:28 | P.DS ---
Providers Date of admission: 10/17/21 12:26 Expected date of discharge: 10/18/21 Attending physician: Tyrese Logan Consults: 10/16/21 12:02 Consult Physician Routine Consulting Provider: Spenser Meredith Consult Reason/Comments: Medical Management Do you want consulting provider notified?: Yes Primary care physician: Spencer [facility] Course: Date of admission: 10/17/2021 Date of discharge: 10/18/2021 Admission diagnosis: Status post right total knee arthroplasty Discharge diagnosis: Same Attending physician: Dr. Logan Surgical procedures: Right total knee arthroplasty Brief history: Patient is a 76-year-old female with a history of with progressive primary right knee osteoarthritis. At this point patient has failed conservative treatment measures and has opted to proceed with a elective right total knee arthroplasty. Hospital course: Details of patient's surgery can be found in operative report. Patient tolerated the procedure well and was subsequently transported to orthopedic floor. Patient's orthopeidc and medical care was provided daily. Patient had daily laboratory tests performed for evaluation of overall blood counts. Patient had daily physical therapy to include strengthening range of motion as well as education with walker ambulation. Patient was treated with Xarelto for their postoperative DVT prophylaxis during their inpatient stay. Patient was noted to have a relatively uneventful postoperative course. Patient reported satisfactory pain control with oral pain medications by postoperative day 0. Patient showed satisfactory progress with physical therapy. Patient moved steadily through the program and had no difficulty meeting the goals by postoperative day 1. Given patient's otherwise satisfactory course and having met physical therapy goals, plan is to discharge patient home on postoperative day 1. Discharge condition/disposition: Patient will be discharged home in stable condition. Discharge medications: See medication list Discharge instructions: 1. Wound care and infection precautions, keep incision dry and covered while showering, no lotions, creams, moisturizers. No soaking, tubs, pools, hottubs. Do not scrub over the incision. 2. Weight-bear as tolerated with walker / cane until follow-up. 3. Ice and elevate when necessary. Do not exceed 20 minutes per hour with ice pack. 4. Utilize compression sleeve until seen at first follow up appointment. 5. Visiting nursing care. 6. Home physical therapy including home CPM. 7. Pain meds and anticoagulants per prescription. 8. Pain medication has potential to cause constipation. Increase oral fluid and fiber intake. Contact primary care provider if you have not had a bowel movement within 48 hours after discharge 9. No anti-inflammatory medication until discussed at first post operative visit, this including Motrin, Aleve, Mobic, Diclofenac 10. Follow up in office at 2 weeks postop with Porfirio Ward PA-C/Thom Murcia 11. Follow up with your primary care doctor 7-10 days after discharge. 12. Contact [facility] with any questions, . Procedures: Right total knee arthroplasty Patient Condition at Discharge: Good Plan - Discharge Summary Discharge Rx Participant: No New Discharge Prescriptions: No Action Simvastatin [Zocor] 20 mg PO HS chlordiazePOXIDE HCl [Librium] 5 mg PO QAM Calcium Carbonate [Tums] 1 - 2 tab PO DAILY PRN PRN Reason: GERD Aspirin 650 mg PO Q6H PRN PRN Reason: Pain Acetaminophen Tab [Tylenol] 650 mg PO Q6H PRN PRN Reason: Pain Lisinopril-Hctz 10-12.5 mg [Zestoretic 10-12.5] 1 tab PO HS metFORMIN HCL 1,000 mg PO BID Cholecalciferol [Vitamin D3 (25 Mcg = 1000 Iu)] 75 mcg PO DAILY Ascorbic Acid [Vitamin C] 500 mg PO BID Discharge Medication List Acetaminophen Tab [Tylenol] 650 mg PO Q6H PRN 10/12/21 [History] Ascorbic Acid [Vitamin C] 500 mg PO BID 10/12/21 [History] Aspirin 650 mg PO Q6H PRN 10/12/21 [History] Calcium Carbonate [Tums] 1 - 2 tab PO DAILY PRN 10/12/21 [History] Cholecalciferol [Vitamin D3 (25 Mcg = 1000 Iu)] 75 mcg PO DAILY 10/12/21 [History] Lisinopril-Hctz 10-12.5 mg [Zestoretic 10-12.5] 1 tab PO HS 10/12/21 [History] Simvastatin [Zocor] 20 mg PO HS 10/12/21 [History] chlordiazePOXIDE HCl [Librium] 5 mg PO QAM 10/12/21 [History] metFORMIN HCL 1,000 mg PO BID 10/12/21 [History] Follow up Appointment(s)/Referral(s): Thom Wood, GANGA [PHYSICIAN REHABILITATION PROGRAM COORDINATOR] - 11/01/21 10:50 am [facility] [NON-STAFF] - 1-2 Days Spencer Rubin DO [Primary Care Provider] - 1 Week Activity/Diet/Wound Care/Special Instructions: Orthopedic Discharge Instructions: 1. Wound care and infection precautions, keep incision dry and covered while showering, no lotions, creams, moisturizers. No soaking, pools, hot tubs. Do not scrub over incision. 2. Weight-bear as tolerated with walker / cane until follow-up. 3. Ice and elevate when necessary. Do not exceed 20 minutes per hour with ice pack. 4. Utilize compression sleeve until seen at first follow up appointment. 5. Pain meds and anticoagulants per prescription. 6. Pain medication has potential to cause constipation. Increase oral fluid and fiber intake. Contact primary care provider if you have not had a bowel movement within 48 hours after discharge. 7. No anti-inflammatory medication until discussed at first post operative visit, this including Motrin, Aleve, Mobic, Diclofenac. 8. Follow up in office at 2 weeks postop with Porfirio Ward PA-C/Thom Wood PA-C 9. Follow up with your primary care doctor 7-10 days after discharge. 10. Contact [facility] with any questions, . Discharge Disposition: HOME WITH HOME HEALTH SERVICES
--- NOTE | 2021-10-18 13:35 | P.PN ---
Subjective Progress Note Date: 10/18/21 - Reason for Consult Consult date: 10/17/21 medical management Requesting physician: Delfin Ward - History of Present Illness This is a 76 year female with medical history significant for TIA, diabetes mellitus, hypertension, GERD, uterine cancer, chronic back pain, neuropathy right foot, rare former smoker quit 35 years ago. Patient underwent elective right total knee arthroplasty secondary to osteoarthritis. She is postoperative day #1. Patient home medications include metformin, Librium, simvastatin, Zestoretic, vitamins. Preoperative labs show a glucose of 190. Creatinine was stable at 0.6. She is afebrile, she is tachycardic heart rate 106, blood pressure 107/56 and she is 92% on 3 L nasal cannula. She has been resumed on her home blood pressure medication she has been started on Xarelto for VTE prophylaxis. Metformin on hold in place and is receiving sliding scale insulin. We are asked to see patient in consultation for medical management. Is pending PT OT evaluation. 10/18/2021 Patient is seen and evaluated this morning and is postop right hip total arthroplasty with orthopedics. Patient is currently anticoagulated on Xarelto and will continue. Patient follows with Dr. Rubin in the outpatient setting and encourage the patient to follow-up and reported that she has an appointment on 10/23/2021. Patient encouraged to continue with incentive spirometer to use at least 10 times every hour while awake and recommend repeat labs in the outpatient setting. Potassium mildly low at 3.1 and replace per protocol and continue with potassium rich diet. Blood sugars mildly elevated and maintained on oral diabetic agents and encourage the patient to monitor blood sugars before meals and at bedtime and continue with strict diabetic diet. Patient is afebrile and denies chest pain or shortness of breath. Patient is extremely anxious and would like to go home today. She reports to feeling well and pain is manageable and has been working with physical therapy. Review of systems: Constitutional: No reports of fatigue, fever, or chills Cardiovascular: No reports of chest pain or palpitations Respiratory: No reports of shortness of breath or cough GI: No reports of nausea, vomiting, or diarrhea : No reports of dysuria or retention Neurovascular: No reports of weakness or numbness, reports some right hip pain but manageable All medications have been reviewed PHYSICAL EXAMINATION: GENERAL: The patient is alert and oriented x3, anxious to go home. Well deve loped, well nourished. HEENT: Pupils are round and equally reacting to light. EOMI. No scleral icterus. No conjunctival pallor. Normocephalic, atraumatic. No pharyngeal erythema. No thyromegaly. CARDIOVASCULAR: S1 and S2 muffled PULMONARY: Diminished breath sounds bilaterally with no wheezing or crackles. ABDOMEN: Soft, nontender, nondistended, normoactive bowel sounds. No palpable organomegaly. MUSCULOSKELETAL: No joint swelling or deformity. EXTREMITIES: No cyanosis, clubbing, or pedal edema. Some right lower extremity edema NEUROLOGICAL: Gross neurological examination did not reveal any focal deficits. SKIN: No rashes. Assessment: right total arthroplasty secondary to osteoarthritis Diabetes Mellitus type II, uncontrolled with hyperglycemia History TIA Hypertension Gastroesophageal reflux disease History uterine cancer History of chronic back pain History neuropathy right foot former smoker GI Prophylaxis DVT Prophlaxis as per primary Full Code Plan Continue appropriate home medications, metformin being resumed Patient to continue with potassium rich diet and follow-up repeat labs at PCP appointment on 10/23/2021 Encourage the patient to continue with compression stockings or Lj wraps and elevating lower extremities while at rest Recommending replace a letter lites per protocol as potassium was 3.1 Monitor blood glucoses before meals at bedtime and keep a diary for primary follow-up Pending PT OT evaluation CBC BMP today Patient will be started on GI prophylaxis Thank you kindly for this consultation Objective - Vital Signs Vital signs: Vital Signs Temp 99.5 F 10/18/21 01:58 Pulse 114 H 10/18/21 01:58 Resp 18 10/18/21 01:58 BP 127/65 10/18/21 01:58 Pulse Ox 94 L 10/18/21 01:58 FiO2 Intake & Output 10/17/21 10/18/21 10/18/21 18:59 06:59 18:59 Intake Total 420 Balance 420 Intake: Intake, IV Titration 120 Amount Lactated Ringers 1,000 ml 120 @ 20 mls/hr IV .Q24H [facility] Rx#:[id number] Oral 300 Other: Voiding Method Toilet Bedpan # Voids 4 4 # Bowel Movements 0 - Labs CBC & Chem 7: 10/18/21 04:25 10/18/21 04:25 Labs: Abnormal Lab Results - Last 24 Hours (Table) 10/17/21 10/17/21 10/17/21 Range/Units 06:29 11:57 16:30 RBC (4.10-5.20) X 10*6/uL Hgb (12.0-15.0) g/dL Hct (37.2-46.3) % MCH (27.0-32.0) pg MCHC (32.0-37.0) g/dL POC Glucose (mg/dL) 250 H 206 H (70-110) mg/dL Hemoglobin A1c 8.6 H (0.0-6.0) % 10/17/21 10/18/21 10/18/21 Range/Units 19:15 04:25 06:47 RBC 3.15 L (4.10-5.20) X 10*6/uL Hgb 8.2 L (12.0-15.0) g/dL Hct 25.9 L (37.2-46.3) % MCH 26.0 L (27.0-32.0) pg MCHC 31.7 L (32.0-37.0) g/dL POC Glucose (mg/dL) 293 H 161 H (70-110) mg/dL Hemoglobin A1c (0.0-6.0) %
== END 2021-10-18 11:39 | disposition home health service (06) ==
LOC: OR 07:48 → 4SSUR 12:21 → OR 10-17 12:26 → 4SSUR 10-17 12:26
PROVIDERS: ADMIT Orthopaedic Surgery; ATTEND Orthopaedic Surgery
DX: M17.11 Unilateral primary osteoarthritis, right knee (principal); M21.061 Valgus deformity, not elsewhere classified, right knee; E11.65 Type 2 diabetes mellitus with hyperglycemia; G89.18 Other acute postprocedural pain; E78.00 Pure hypercholesterolemia, unspecified; I10 Essential (primary) hypertension; K21.9 Gastro-esophageal reflux disease without esophagitis; E11.42 Type 2 diabetes mellitus with diabetic polyneuropathy; Z86.73 Personal history of transient ischemic attack (TIA), and cerebral infarction without residual deficits; Z90.710 Acquired absence of both cervix and uterus; Z82.49 Family history of ischemic heart disease and other diseases of the circulatory system; Z79.84 Long term (current) use of oral hypoglycemic drugs; Z79.82 Long term (current) use of aspirin; Z85.42 Personal history of malignant neoplasm of other parts of uterus; Z87.891 Personal history of nicotine dependence; Z80.9 Family history of malignant neoplasm, unspecified
CPT/HCPCS: 94760; 97116; 97161; 97535; 97165; 80048; 85025 ×2; 88300; 83036; 73560; 27447; G0378 ×2; C1713 ×2; C1776 ×2; J2250; J0330; J1100; J2710; J0690 ×3; J2405; J2274; J3010; J1170 ×2; J2704

== ENCOUNTER → 2022-06-14 | Outpatient (CLI) | payer MEDICARE ==
--- NOTE | 2022-06-14 11:46 | XR ---
EXAMINATION TYPE: XR lumbar spine 2 or 3V DATE OF EXAM: 06/14/2022 CLINICAL HISTORY: pain TECHNIQUE: Three views of the lumbar spine are submitted. COMPARISON: None. FINDINGS: There are 5 lumbar type vertebral bodies identified. The lumbar spine shows satisfactory alignment w ithout evidence of acute fracture or dislocation. Vertebral body heights are within normal limits. Scoliotic curvature is noted convex to the left. Severe multilevel degenerative disc space narrowing and spondylosis. Severe lower lumbar facet joint arthropathy. The overlying soft tissue appears unre markable. IMPRESSION: No acute fracture or dislocation is seen in the lumbar spine. ICD 10 NO FRACTURE, INITIAL EVALUATION
== END | disposition home or self-care (01) ==
LOC: RADXRMAIN 10:37
PROVIDERS: ATTEND Family Medicine
DX: M54.50 Low back pain, unspecified (principal)
CPT/HCPCS: 72100

== ENCOUNTER → 2022-09-18 | Outpatient (CLI) | payer OTHER ==
--- NOTE | 2022-09-18 09:07 | MM ---
Reason for Exam: Screening (asymptomatic). Last mammogram was performed 1 year(s) and 1 month(s) ago. Patient History: Menarche at age 13. Patient has no children. Left ovary removed at age 57. Right ovary removed at age 57. Hysterectomy at age 57. Postmenopausal. Endometrial cancer, age 57. Risk Values: Fabi 5 year model risk: 1.9%. NCI Lifetime model risk: 3.7%. Prior Study Comparison: 05/09/2017 Bilateral Screening Mammogram, [facility]. 07/13/2018 Bilateral Screening Mammogram, [facility]. 07/31/2021 Bilateral Screening Mammogram, [facility]. Tissue Density: The breast tissue is almost entirely fat. Findings: Analyzed By CAD. There is no suspicious group of microcalcifications or new suspicious mass in either breast. Overall Assessment: Negative, BI-RAD 1 Management: Screening Mammogram of both breasts in [address] [facility] will attempt to contact patient to return for supplemental views and ultrasound if indicated. Patient should continue monthly self-breast exams. A clinical breast exam by your physician is recommended on an annual basis. This exam should not preclude additional follow-up of suspicious palpable abnormalities. Note on Fabi scores and lifetime risk: 1. A Fabi score greater than 3% is considered moderate risk. If this is the case, consider specialist referral to assess eligibility for a risk reducing agent. 2. If overall lifetime risk for the development of breast cancer is 20% or higher, the patient may qualify for future screening with alternating mammogram and breast MRI. Electronically signed and approved by: Jose Mello DO
== END | disposition home or self-care (01) ==
LOC: RADMAMWWP 07:50
DX: Z12.31 Encounter for screening mammogram for malignant neoplasm of breast (principal); Z78.0 Asymptomatic menopausal state
CPT/HCPCS: 77067

== ENCOUNTER → 2023-05-07 | Outpatient (CLI) | payer OTHER ==
--- NOTE | 2023-05-07 10:10 | CT ---
EXAMINATION TYPE: CT chest wo con DATE OF EXAM: 05/07/2023 COMPARISON: None. HISTORY: Abnormal finding on chest x-ray. CT DLP: 537 mGycm. Automated Exposure Control for Dose Reduction was Utilized. TECHNIQUE: CT scan of the thorax is performed without IV contrast. FINDINGS: Mediastinum and Sarah: There is no axillary, mediastinal or hilar lymphadenopathy. Pleural and Pericardial spaces: There are no pleural or pericardial effusions. Upper Abdomen: Several small cysts are seen within the liver. An additional cyst is also seen within the right kidney that measures 2.5 cm in diameter. There is a moderate sized sliding hiatal hernia. T he visualized upper abdomen otherwise appears unremarkable. Cardiovascular: There is mild vascular calcification throughout the thoracic aorta without evidence o f aneurysmal dilation. Mild to moderate patchy coronary artery calcifications are also seen. Echo jose xiao 97.1 dictated Lung Parenchyma and Airways: The lungs are clear. Bones: No fracture or aggressive osseous lesion. IMPRESSION: 1. No acute abnormality in the chest. 2. Hiatal hernia. 3. Coronary artery calcifications. Follow-up recommendations for incidental pulmonary nodules are per [employer] or [employer].
== END | disposition home or self-care (01) ==
LOC: RADCTMAIN 08:34
PROVIDERS: ATTEND Family Medicine
DX: K44.9 Diaphragmatic hernia without obstruction or gangrene (principal); I25.10 Atherosclerotic heart disease of native coronary artery without angina pectoris; R93.1 Abnormal findings on diagnostic imaging of heart and coronary circulation
CPT/HCPCS: 71250